=== PATIENT | female | born 1970 | race Caucasian/White ===

== ENCOUNTER 2019-06-08 20:40 | Emergency (ER) | payer SELFPAY ==
[~2019-06-08] VITALS: Ht 165.1 cm; Wt 87.1 kg
[2019-06-08 20:50] VITALS: BP 157/114
--- NOTE | 2019-06-08 21:00 | NUR ---
PT AMBULATED TO THE LOBBY, VSS
--- NOTE | 2019-06-08 21:05 | NUR ---
PT AMBULATED TO BED #11
--- NOTE | 2019-06-08 21:15 | NUR ---
PATIENT PRESENTS TO ED WITH PT C/O HAND PAIN, PT HAD HER HAND LANDED ON BY NEPHEW. PT DENIES NUMBNESS, TINGLING. GOOD PMSC. [facility] MEDICAL HX: HTN . DENIES N/V/D; SKIN IS PINK/WARM/DRY; AAOX4 WITH EVEN AND STEADY GAIT; LUNGS CLEAR BL; HR EVEN AND REGULAR; PT DENIES ANY FEVER, CP, SOB, OR COUGH AT THIS TIME; PATIENT STATES PAIN OF 7/10 AT THIS TIME; VSS; PATIENT POSITIONED FOR COMFORT; HOB ELEVATED; BEDRAILS UP X2; BED DOWN. ER MD MADE AWARE OF PT STATUS.
[2019-06-08] MEDS ORDERED: IBUPROFEN 600 MG TAB PO ONE (21:25)
--- NOTE | 2019-06-08 21:31 | NUR ---
WRAPPED PT'S R HAND WITH JAYLENE WRAP, R SHOULDER/ARM SLING PLACED BY EMT. +CMS. Addendum: 06/08/19 at 2133 by JUDY Eamon SAXENA
[2019-06-08 21:36] VITALS: BP 157/114
--- NOTE | 2019-06-08 21:36 | NUR ---
Patient discharged by Dr Childers with v/s stable. Written and verbal after care instructions given and explained. Patient verbalized understanding. Ambulatory with steady gait. All questions addressed prior to discharge. Advised to follow up with PMD.
== END 2019-06-08 21:36 | disposition home or self-care (01) ==
LOC: MED 20:40
DX: S63.501A Unspecified sprain of right wrist, initial encounter (principal); I10 Essential (primary) hypertension; W03.XXXA Other fall on same level due to collision with another person, initial encounter; Y93.89 Activity, other specified; Y92.89 Other specified places as the place of occurrence of the external cause; Y99.8 Other external cause status
CPT/HCPCS: 73130; 99283; Q0092

== ENCOUNTER 2020-02-07 10:55 | Emergency (ER) | payer SELFPAY ==
[~2020-02-07] VITALS: Ht 165.1 cm; Wt 93.0 kg
[2020-02-07 11:08] VITALS: BP 130/99
--- NOTE | 2020-02-07 11:34 | NUR ---
49 Y/O FEMALE PRESENTS WITH LEFT HAND INDEX FINGER LACERATION, 2 WEEKS AGO PT SUFFERED CRUSHED INJURY ON INDEX FINGER AND RECEIVED SUTURES TO SITE. PT DID NOT FOLLOW UP 9 DAYS LATER TO REMOVE SUTURES, AND BEGAN GETTING DISCHARE AT SITE. PTS DAUGTER UNWRAPPED SUTURE COVERING AND NOTICED SUTURES WERE PARTIALLY OPENED, SO PT CAME TO ER. NO BLEEDING NOTED AT THIS TIME. TISSUE IS PROTRUDING THROUGH OPENING IN SUTURE AREA. PAIN STATES PAIN IS 8/10. PT STATES SHE HAD A HEADACHE THIS MORNING SO SHE TOOK EXCEDRIN. CMS+, ROM+ BUE. RADIAL PULSES PRESENT BILAT, CAP REFILL <3 BUE
[2020-02-07] MEDS ORDERED: KETOROLAC 30 MG/ML VIAL IM ONE (11:40)
[2020-02-07] MEDS ORDERED: KETOROLAC 30 MG/ML VIAL ONE (11:43)
--- NOTE | 2020-02-07 12:00 | NUR ---
PT LEFT HAND SECOND DIGIT FINGER IRRIGATED WITH NORMAL SALINE
--- NOTE | 2020-02-07 12:06 | NUR ---
APPLIED NON-ADHERENT GUAZE TO PT'S LEFT HAND SECOND DIGIT FINGER AND WRAPPED WITH 2" GUAZE ROLL. RN AND PA NOTIFIED.
[2020-02-07 12:30] VITALS: BP 130/99
== END 2020-02-07 12:31 | disposition home or self-care (01) ==
LOC: MED 10:55
DX: S61.217D Laceration without foreign body of left little finger without damage to nail, subsequent encounter (principal); S61.218D Laceration without foreign body of other finger without damage to nail, subsequent encounter; I10 Essential (primary) hypertension; R03.0 Elevated blood-pressure reading, without diagnosis of hypertension; X58.XXXD Exposure to other specified factors, subsequent encounter; Z48.00 Encounter for change or removal of nonsurgical wound dressing
CPT/HCPCS: 96372; 99283; J1885